=== PATIENT | male | born 1965 | race Caucasian/White ===

== ENCOUNTER 2018-08-24 06:16 | Emergency (ER) | payer BC, OTHER ==
[2018-08-24] MEDS ORDERED: predniSONE 20 MG Tab PO ONE (06:38)
[2018-08-24] MEDS ORDERED: Ketorolac 60 MG/2 ML SDV IM ONE (06:38)
[2018-08-24] MEDS ORDERED: Acetaminophen/HYDROcodone 325-7.5 MG Tab PO ONE (06:38)
--- NOTE | 2018-08-24 06:44 | EDM.PDOC ---
ED HPI GENERAL MEDICAL PROBLEM - General Chief Complaint: Lower Extremity Injury/Pain Stated Complaint: GOUT IN LEFT FOOT Time Seen by Provider: 08/24/18 06:30 - History of Present Illness INITIAL COMMENTS - FREE TEXT/NARRATIVE: HISTORY AND PHYSICAL: History of present illness: The patient is a 52-year-old male with a history of 4 prior episodes of gout and toes and his ankle and presents with pain to his left ankle that started last evening. The patient has a history of hypertension and a pulmonary embolus for which he is currently on Zaroxolyn and he denies any history of trauma. He has no calf pain or swelling and says that his last episode was in his ankle and this feels similarly. Patient already took 2 doses of culture seen last evening and it did not improve the pain. He is currently concerned because he has a lot of work today and tomorrow and he needs to be on his feet and wants medications for discomfort. He denies any bruising to the area has no neurosensory changes in the distal foot and no proximal calf knee thigh or hip pain. He has no systemic complaints. The patient tells me that the last time he had ankle pain and it was a gout attack they did multiple tests including x- rays and blood work and determine gout and this feels similarly and he does not want any of those tests performed Review of systems: As per history of present illness and below otherwise all systems reviewed and negative. Past medical history: As per history of present illness and as reviewed below otherwise noncontributory. Surgical history: As per history of present illness and as reviewed below otherwise noncontributory. Social history: No reported history of drug or alcohol abuse. Family history: As per history of present illness and as reviewed below otherwise noncontributory. Physical exam: General: Well-developed well-nourished overweight man who is nontoxic and vital signs are noted by me HEENT: Atraumatic, normocephalic, negative for conjunctival pallor or scleral icterus, mucous membranes moist, throat clear, neck supple, nontender, trachea midline. Lungs: Clear to auscultation, breath sounds equal bilaterally, chest nontender. Heart: S1S2, regular rate and rhythm no overt murmurs Abdomen: Soft, nondistended, nontender. NABS Pelvis: Stable nontender. Genitourinary: Deferred. Rectal: Deferred. Extremities: Atraumatic, negative for cords or calf pain. Neurovascular unremarkable. There is diffuse circumferential soft tissue swelling of the left ankle with tenderness with palpation in the joint space but no erythema and only minimal warmth appreciated. There are no bony defects deformities tenderness or crepitus and there are no skin breaks appreciated. There is no fluctuance in this area or any abrasions or lesions. The distal foot and proximal tib-fib are without tenderness defects or deformities Neuro: Awake, alert, oriented. Cranial nerves II through XII unremarkable. Cerebellum unremarkable. Motor and sensory unremarkable throughout. Exam nonfocal. Diagnostics: The patient was offered imaging and labs and he declines Therapeutics: [place] prednisone Toradol Impression: Acute left ankle pain/gout attack with history of same Definitive disposition and diagnosis as appropriate pending reevaluation and review of above. left ankle Pain Score (Numeric/FACES): 6 - Related Data Allergies Allergy/AdvReac Type Severity Reaction Status Date / Time No Known Allergies Allergy Verified 08/24/18 06:31 Home Meds: Home Meds Dextroamphetamine/Amphetamine [Adderall 20 mg Tablet] 1 tab PO DAILY 06/20/14 [ History] Hydrocodone/Acetaminophen [Xodol 7.5-300 mg Tablet] 1 tab PO ASDIRECTED PRN 09/27 [History] Lisinopril/Hydrochlorothiazide [Lisinopril-Hctz 10-12.5 mg Tab] 1 tab PO DAILY 06/20/14 [History] amLODIPine [Norvasc] 1 tab PO DAILY 06/20/14 [History] Rivaroxaban [Xarelto] 20 mg PO DAILY 08/24/18 [History] Review of Systems - Review of Systems Review Of Systems: ROS reveals no pertinent complaints other than HPI. ED EXAM, GENERAL - Physical Exam Exam: See Below (See dictation) Course - Vital Signs Last Recorded V/S: Last Vital Signs Temp 36.5 C 08/24/18 06:32 Pulse 85 08/24/18 06:32 Resp 18 08/24/18 06:32 BP 108/69 08/24/18 06:32 Pulse Ox 98 08/24/18 06:32 - Orders/Labs/Meds Meds: Medications Discontinued Medications Generic Name Dose Route Start Last Admin Trade Name Freq PRN Reason Stop Dose Admin Hydrocodone Bitart/Acetaminophen 1 tab 08/24/18 06:38 [place] 325-7.5 Mg PO 08/24/18 06:39 ONETIME ONE Ketorolac Tromethamine 60 mg 08/24/18 06:38 Toradol IM 08/24/18 06:39 ONETIME ONE Prednisone 20 mg 08/24/18 06:38 Prednisone PO 08/24/18 06:39 ONETIME ONE Departure - Departure Time of Disposition: 06:44 Disposition: Home, Self-Care 01 Condition: Good Clinical Impression: Left ankle pain Qualifiers: Chronicity: acute Qualified Code(s): M25.572 - Pain in left ankle and joints of left foot Gout Qualifiers: Gout site: ankle Gout etiology: unspecified cause Laterality: left - Discharge Information Referrals: PCP,None [Primary Care Provider] - Additional Instructions: The following information is given to patients seen in the emergency department who are being discharged to home. This information is to outline your options for follow-up care. We provide all patients seen in our emergency department with a follow-up referral. The need for follow-up, as well as the timing and circumstances, are variable depending upon the specifics of your emergency department visit. If you don't have a primary care physician on staff, we will provide you with a referral. We always advise you to contact your personal physician following an emergency department visit to inform them of the circumstance of the visit and for follow-up with them and/or the need for any referrals to a consulting specialist. The emergency department will also refer you to a specialist when appropriate. This referral assures that you have the opportunity for followup care with a specialist. All of these measure are taken in an effort to provide you with optimal care, which includes your followup. Under all circumstances we always encourage you to contact your private physician who remains a resource for coordinating your care. When calling for followup care, please make the office aware that this follow-up is from your recent emergency room visit. If for any reason you are refused follow-up, please contact the [facility] emergency department at and ask to speak to the emergency department charge nurse. [facility] Primary care- Internal Medicine and Family [address] [address] Ice and elevate the area and try to not do excessive walking or activities at this may increase the inflammation. Use medications as prescribed and only take the [place] when you are at home or in her hotel room. Please call and schedule follow-up appointment with one of our providers or with your provider at home for reevaluation further care and return to ER as needed as discussed
[2018-08-24 06:45] VITALS: BP 108/69
== END 2018-08-24 07:15 | disposition home or self-care (01) ==
LOC: MW.ED 06:16
DX: M10.9 Gout, unspecified (principal); Z79.899 Other long term (current) drug therapy
CPT/HCPCS: 96372; 99283; A9270; J1885

== ENCOUNTER 2018-10-08 05:37 | Emergency (ER) | payer OTHER ==
--- NOTE | 2018-10-08 05:57 | EDM.PDOC ---
ED HPI GENERAL MEDICAL PROBLEM - General Chief Complaint: Lower Extremity Injury/Pain Stated Complaint: GOUT Time Seen by Provider: 10/08/18 05:57 Source of Information: Reports: Patient - History of Present Illness INITIAL COMMENTS - FREE TEXT/NARRATIVE: HISTORY AND PHYSICAL: History of present illness: [Patient with history of gout presents with gout-like pain in right foot and ankle denies injury or trauma no fever nausea vomiting chills sweats pain 8 out of 10 with weightbearing better at rest or without movement no fever nausea vomiting chills sweats] Review of systems: As per history of present illness and below otherwise all systems reviewed and negative. Past medical history: As per history of present illness and as reviewed below otherwise noncontributory. Surgical history: As per history of present illness and as reviewed below otherwise noncontributory. Social history: No reported history of drug or alcohol abuse. Family history: As per history of present illness and as reviewed below otherwise noncontributory. Physical exam: HEENT: Atraumatic, normocephalic, pupils reactive, negative for conjunctival pallor or scleral icterus, mucous membranes moist, throat clear, neck supple, nontender, trachea midline. Lungs: Clear to auscultation, breath sounds equal bilaterally, chest nontender. Heart: S1S2, regular, negative for clicks, rubs, or JVD. Abdomen: Soft, nondistended, nontender. Negative for masses or hepatosplenomegaly. Negative for costovertebral tenderness. Pelvis: Stable nontender. Genitourinary: Deferred. Rectal: Deferred. Extremities: Atraumatic, negative for cords or calf pain. Neurovascular unremarkable. Neuro: Awake, alert, oriented. Cranial nerves II through XII unremarkable. Cerebellum unremarkable. Motor and sensory unremarkable throughout. Exam nonfocal. Again unremarkable right foot no redness openly lesion or bruising neurovascularly intact Diagnostics: []A shunt refuses lab and x-ray Therapeutics: [][place] prednisone Toradol Impression: [] pain History of gout Definitive disposition and diagnosis as appropriate pending reevaluation and review of above. Left Feet Pain Score (Numeric/FACES): 8 - Related Data Allergies Allergy/AdvReac Type Severity Reaction Status Date / Time No Known Allergies Allergy Verified 10/08/18 05:44 Home Meds: Home Meds Dextroamphetamine/Amphetamine [Adderall 20 mg Tablet] 1 tab PO DAILY 02/05/15 [ History] Hydrocodone/Acetaminophen [Xodol 7.5-300 mg Tablet] 1 tab PO ASDIRECTED PRN 09/27 [History] Lisinopril/Hydrochlorothiazide [Lisinopril-Hctz 10-12.5 mg Tab] 1 tab PO DAILY 06/20/14 [History] amLODIPine [Norvasc] 1 tab PO DAILY 06/20/14 [History] Rivaroxaban [Xarelto] 20 mg PO DAILY 08/24/18 [History] Past Medical History HEENT History: Reports: None Cardiovascular History: Reports: Hypertension Respiratory History: Reports: Other (See Below) Other Respiratory History: Pulmonary Embolish Gastrointestinal History: Reports: None Genitourinary History: Reports: None Musculoskeletal History: Reports: Gout Neurological History: Reports: None Psychiatric History: Reports: ADD Endocrine/Metabolic History: Reports: None Hematologic History: Reports: None Immunologic History: Reports: None Dermatologic History: Reports: None - Infectious Disease History Infectious Disease History: Reports: None - Past Surgical History Head Surgeries/Procedures: Reports: None Social & Family History - Family History Family Medical History: Noncontributory - Tobacco Use Smoking Status *Q: Never Smoker - Caffeine Use Caffeine Use: Reports: Coffee - Recreational Drug Use Recreational Drug Use: No Review of Systems - Review of Systems Review Of Systems: See Below ED EXAM, GENERAL - Physical Exam Exam: See Below Course - Vital Signs Last Recorded V/S: Last Vital Signs Temp 97.1 F 10/08/18 05:45 Pulse 75 10/08/18 05:45 Resp 18 10/08/18 05:45 BP 173/104 H 10/08/18 05:45 Pulse Ox 96 10/08/18 05:45 Departure - Departure Time of Disposition: 06:04 Disposition: Home, Self-Care 01 Condition: Good Clinical Impression: Gout Qualifiers: Gout site: ankle Gout etiology: unspecified cause Laterality: left - Discharge Information Referrals: PCP,None [Primary Care Provider] - Forms: ED Department Discharge Additional Instructions: The following information is given to patients seen in the emergency department who are being discharged to home. This information is to outline your options for follow-up care. We provide all patients seen in our emergency department with a follow-up referral. The need for follow-up, as well as the timing and circumstances, are variable depending upon the specifics of your emergency department visit. If you don't have a primary care physician on staff, we will provide you with a referral. We always advise you to contact your personal physician following an emergency department visit to inform them of the circumstance of the visit and for follow-up with them and/or the need for any referrals to a consulting specialist. The emergency department will also refer you to a specialist when appropriate. This referral assures that you have the opportunity for follow-up care with a specialist. All of these measure are taken in an effort to provide you with optimal care, which includes your follow-up. Under all circumstances we always encourage you to contact your private physician who remains a resource for coordinating your care. When calling for follow-up care, please make the office aware that this follow-up is from your recent emergency room visit. If for any reason you are refused follow-up, please contact the [facility] emergency department at and asked to speak to the emergency department charge nurse.
[2018-10-08] MEDS ORDERED: Ketorolac 60 MG/2 ML SDV IM ONE (06:04)
[2018-10-08] MEDS ORDERED: Acetaminophen/HYDROcodone 325-7.5 MG Tab PO STA (06:04)
[2018-10-08 06:46] VITALS: BP 163/90
== END 2018-10-08 06:40 | disposition home or self-care (01) ==
LOC: MW.ED 05:37
DX: M10.9 Gout, unspecified (principal); I10 Essential (primary) hypertension; F98.8 Other specified behavioral and emotional disorders with onset usually occurring in childhood and adolescence; Z79.899 Other long term (current) drug therapy; Z79.01 Long term (current) use of anticoagulants; Z86.711 Personal history of pulmonary embolism
CPT/HCPCS: 96372; 99283; A9270; J1885

== ENCOUNTER 2019-06-10 06:09 | Emergency (ER) | payer OTHER ==
[2019-06-10] MEDS ORDERED: Ketorolac 60 MG/2 ML SDV IM ONE (06:34)
--- NOTE | 2019-06-10 06:35 | EDM.PDOC ---
ED HPI GENERAL MEDICAL PROBLEM - General Chief Complaint: Lower Extremity Injury/Pain Stated Complaint: GOUT IN RT ANKLE Time Seen by Provider: 06/10/19 06:28 - History of Present Illness INITIAL COMMENTS - FREE TEXT/NARRATIVE: HISTORY AND PHYSICAL: History of present illness: The patient is a 53-year-old male with a history of PE for which he has completed treatment, hypertension and has a longstanding history of gout for which he has been seen here in our emergency department in the past and presents with right ankle pain that is been ongoing for 2 days that feels like a gout flareup. The patient denies that he has had any direct trauma to the ankle foot or leg and says that he has had recurrent episodes of gout in his ankle and this feels exactly the same. He has had no systemic issues such as chest pain shortness of breath fevers chills or other joint abnormalities but he does state that he has had a left knee replacement and he is scheduled to be reevaluated for possible right knee replacement in the near future due to chronic arthritic changes in that right knee. The patient says that he has tried over-the- counter meds but he knows that he needs to stand and be very active and he is here for treatment. In the past prednisone [place] and Toradol have worked well for him which is what he is requesting. The patient denies any new dietary changes that could have triggered this flareup. He does not have any meds such as colchicine or allopurinol to utilize. He does have a provider who is not here locally that he follows with for his chronic medical issues Review of systems: As per history of present illness and below otherwise all systems reviewed and negative. Past medical history: As per history of present illness and as reviewed below otherwise noncontributory. Surgical history: As per history of present illness and as reviewed below otherwise noncontributory. Social history: No reported history of drug or alcohol abuse. Family history: As per history of present illness and as reviewed below otherwise noncontributory. Physical exam: General: Well-developed well-nourished mildly overweight man who is nontoxic and vital signs are noted by me. As I was in the room with the patient he was taking his morning medications and he says that his elevated blood pressure is due to the need to take his meds. HEENT: Atraumatic, normocephalic, negative for conjunctival pallor or scleral icterus, mucous membranes moist, throat clear, neck supple, nontender, trachea midline. Lungs: Clear to auscultation, breath sounds equal bilaterally, chest nontender. No breathlessness work of breathing wheezing or stridor Heart: S1S2, regular and rhythm no overt murmurs Abdomen: Soft, nondistended, nontender.NABS Pelvis: Stable nontender. Genitourinary: Deferred. Rectal: Deferred. Extremities: Atraumatic, negative for cords or calf pain. There are chronic arthritic changes of the right knee but no new tenderness soft tissue swelling or joint effusion and the calf has minimal dependent trace edema and there is no ecchymosis erythema or warmth to the right ankle. There is no gross joint effusion and there is no palpable bony defects deformities or tenderness of the bony architecture but there is some soft tissue discomfort with palpation in the joint space. Pulses are intact and there is no evidence of any visible trauma at the right ankle. Neurovascular unremarkable. Neuro: Awake, alert, oriented. Cranial nerves II through XII unremarkable. Cerebellum unremarkable. Motor and sensory unremarkable throughout. Exam nonfocal. Diagnostics: Patient was offered x-ray and blood work and refuses Therapeutics: Toradol IM Impression: Acute recurrent gout flareup right ankle Definitive disposition and diagnosis as appropriate pending reevaluation and review of above. Right Ankle Pain Score (Numeric/FACES): 4 - Related Data Allergies Allergy/AdvReac Type Severity Reaction Status Date / Time No Known Allergies Allergy Verified 06/10/19 06:22 Home Meds: Home Meds amLODIPine [Norvasc] 2 tab PO DAILY 06/20/14 [History] Furosemide 20 mg PO DAILY 06/10/19 [History] Lisinopril [Zestril] 40 mg PO DAILY 06/10/19 [History] Metoprolol Succinate 25 mg PO DAILY 06/10/19 [History] Potassium Chloride 20 meq PO DAILY 06/10/19 [History] Tamsulosin [Tamsulosin 24 Hr] 0.4 mg PO DAILY 06/10/19 [History] Triamterene 25 mg PO DAILY 06/10/19 [History] Past Medical History HEENT History: Reports: None Cardiovascular History: Reports: Hypertension Respiratory History: Reports: Other (See Below) Other Respiratory History: Pulmonary Embolish Gastrointestinal History: Reports: None Genitourinary History: Reports: None Musculoskeletal History: Reports: Gout Neurological History: Reports: None Psychiatric History: Reports: ADD Endocrine/Metabolic History: Reports: None Hematologic History: Reports: None Immunologic History: Reports: None Dermatologic History: Reports: None - Infectious Disease History Infectious Disease History: Reports: None - Past Surgical History Head Surgeries/Procedures: Reports: None Social & Family History - Family History Family Medical History: Noncontributory - Tobacco Use Smoking Status *Q: Never Smoker - Caffeine Use Caffeine Use: Reports: Soda - Recreational Drug Use Recreational Drug Use: No Review of Systems - Review of Systems Review Of Systems: Comprehensive ROS is negative, except as noted in HPI. ED EXAM, GENERAL - Physical Exam Exam: See Below (See dictation) Course - Vital Signs Last Recorded V/S: Last Vital Signs Temp 35.9 C 06/10/19 06:15 Pulse 84 06/10/19 06:15 Resp 16 06/10/19 06:15 BP 182/100 H 06/10/19 06:15 Pulse Ox 90 L 06/10/19 06:15 - Orders/Labs/Meds Meds: Medications Discontinued Medications Generic Name Dose Route Start Last Admin Trade Name Freq PRN Reason Stop Dose Admin Ketorolac Tromethamine 60 mg 06/10/19 06:34 Toradol IM 06/10/19 06:35 ONETIME ONE Departure - Departure Time of Disposition: 06:39 Disposition: Home, Self-Care 01 Condition: Good Clinical Impression: Gout attack Qualifiers: Gout site: ankle Gout etiology: unspecified cause Laterality: right Qualified Code(s): M10.9 - Gout, unspecified - Discharge Information Referrals: PCP,Not In Area [Primary Care Provider] - Forms: ED Department Discharge Additional Instructions: The following information is given to patients seen in the emergency department who are being discharged to home. This information is to outline your options for follow-up care. We provide all patients seen in our emergency department with a follow-up referral. The need for follow-up, as well as the timing and circumstances, are variable depending upon the specifics of your emergency department visit. If you don't have a primary care physician on staff, we will provide you with a referral. We always advise you to contact your personal physician following an emergency department visit to inform them of the circumstance of the visit and for follow-up with them and/or the need for any referrals to a consulting specialist. The emergency department will also refer you to a specialist when appropriate. This referral assures that you have the opportunity for followup care with a specialist. All of these measure are taken in an effort to provide you with optimal care, which includes your followup. Under all circumstances we always encourage you to contact your private physician who remains a resource for coordinating your care. When calling for followup care, please make the office aware that this follow-up is from your recent emergency room visit. If for any reason you are refused follow-up, please contact the emergency department at and ask to speak to the emergency department charge nurse. [facility] Primary care- Internal Medicine and Family [address] [address] Please connect with your provider at home for reevaluation and further care or 1 of our providers using resources given to you above. Please utilize medications as prescribed to you, prednisone and [place], taking the pain medication only when you are at home and do not drive a car or operate machinery while taking that medication. You can use [id number] ibuprofen/ Motrin or Aleve as well as plain Tylenol for daytime when you are at work. Turn to ER as needed and as discussed Sepsis Event Note - Evaluation Sepsis Screening Result: No Definite Risk - Focused Exam Vital Signs: Vital Signs Temp Pulse Resp BP Pulse Ox 06/10/19 06:15 35.9 C 84 16 182/100 H 90 L Date Exam was Performed: 06/10/19 Time Exam was Performed: 06:36
[2019-06-10 07:20] VITALS: BP 127/82; PULSE 80
== END 2019-06-10 07:20 | disposition home or self-care (01) ==
LOC: MW.ED 06:09
DX: M10.9 Gout, unspecified (principal); I10 Essential (primary) hypertension; F98.8 Other specified behavioral and emotional disorders with onset usually occurring in childhood and adolescence; Z79.899 Other long term (current) drug therapy; Z86.711 Personal history of pulmonary embolism
CPT/HCPCS: 96372; 99283; J1885